=== PATIENT | female | born 1960 | race Caucasian/White ===

== ENCOUNTER → 2016-10-02 | Outpatient (CLI) | payer BC ==
--- NOTE | 2016-10-02 15:00 | REP ---
Noncontrast chest CT study: Low-dose lung cancer screening study. History: Tobacco use. Findings: There are several tiny noncalcified nodular opacities which merit follow-up. On image #21 of 116 there is a 4 mm nodule in the right upper lobe medially. On image number 25 there is a 3 mm nodule laterally. Just below that on image number 29 there is a less than solid 4 mm nodule again the right upper lobe posterolaterally. In the left upper lobe on image number 37 there is a 4 mm noncalcified nodule adjacent to a pulmonary vessel. In addition, there are multiple scattered bilateral ground-glass opacities in the lung purdy bilaterally involving the right lower lobe, right middle lobe, left upper lobe, and lingular segment of the left upper lobe. No other abnormality. Impression: Positive low-dose lung cancer screening chest CT. Several noncalcified nodules and multiple bilateral ground-glass opacities. Follow-up chest CT study suggested 4-6 months. Signed by Josias Parsons MD 10/02/2016 04:27 P
== END ==
LOC: M RAD 12:32
PROVIDERS: ATTEND Internal Medicine Pulmonary Disease
DX: Z12.2 Encounter for screening for malignant neoplasm of respiratory organs (principal); F17.218 Nicotine dependence, cigarettes, with other nicotine-induced disorders; R91.8 Other nonspecific abnormal finding of lung field